=== PATIENT | male | born 1995 | race Caucasian/White ===

== ENCOUNTER 2023-11-26 07:03 | Emergency (ER) | payer MEDICARE, MEDICAID, SELFPAY ==
--- NOTE | ~2023-11-26 | CT_ITS ---
EXAMINATION: CT FACIAL BONES WITH CONTRAST CLINICAL INFORMATION: Left facial infection COMPARISON: None available. TECHNIQUE: Multiple axial images of the facial region were obtained from base of skull to C7 following the administration of 85 mL of Omnipaque 350. Coronal and sagittal images were reconstructed from axial image data. This CT examination was performed using dose optimization techniques as appropriate, variously including the following: *Automated exposure control *Adjustment of mA and/or kV according to patient size (this includes techniques or standardized protocols for targeted exams where dose is matched to indication/reason for exam; i.e. extremities or head) *Use of iterative reconstruction technique DLP: 670 mGy-cm FINDINGS: ORBITS: Bilateral eyeballs are intact. No well defined rim enhancing abscess cavity could be seen. The extraocular muscles, bilateral optic nerve/ophthalmic vein complexes are intact with normal density, enhancement and symmetrical. Bilateral intraorbital fat planes are normal. PARANASAL SINUSES: Moderate mucosal thickening is seen in the lateral wall of left maxillary sinus. Bilateral frontal, ethmoid and sphenoid sinuses are clear. PHARYNX: Bilateral palatine tonsils appear to be diffusely swollen with no well-defined mass lesion or rim-enhancing peritonsillar abscess. The visualized nasopharynx, hypopharynx are normal with no focal mass lesion. PHARYNGEAL STRUCTURES: Bilateral valleculae, epiglottis, piriform sinuses, vocal cords and arytenoids are normal. SALIVARY GLANDS: Bilateral parotid and submandibular salivary glands are symmetrical without focal lesion. LYMPH NODES: Enlarged left level 1B cervical lymph node measures 2.0 cm in AP diameter, 1.1 cm in width, 1.3 cm in vertical height. Right level 1B cervical lymph node measures 1.9 cm in AP length, 0.9 cm in width. Left level 2A cervical lymph node measures 0.9 cm in AP diameter, 1.2 cm in width, 1.7 cm in vertical height. THYROID: No focal thyroid mass lesion is found. BONES: No fracture or dislocation. No focal bone lesion diagnostic of metastatic disease could be seen in the cervical spine and visualized skull base. No focal facial mass lesion or soft tissue abscess could be seen. CT/CT facial bones w IV con IMPRESSION: 1. Bilateral palatine tonsils hypertrophy or tonsillitis. 2. Bilateral level 1B and left level 2A cervical lymphadenopathy. 3. Moderate mucosal thickening in the lateral wall of left maxillary sinus. Electronically signed by: Matheus Bergeron MD 11/26/2023 12:51 PM EDT RP
[2023-11-26 07:08] VITALS: BP 125/69; PULSE 76; RESP 20; TEMP 37; O2SAT 97; BMI 40.7
--- NOTE | 2023-11-26 07:19 | ED.GENADULT ---
HPI - General Adult General Chief complaint: Dental/Oral Stated complaint: facial swelling Time Seen by Provider: 11/26/23 07:19 History of Present Illness ED Provider: Beatriz PRETTY narrative: The patient is a 28-year-old male who says he has not seem doctors in the long time. He does not have any known medical problems. He also says he has not seen a dentist in a long of problems with chronic dental decay. The patient says that yesterday he started to have discomfort in the region of the left cheek associated with swelling of the cheek. No definite fevers, sweats, chills. He thinks he has some swelling in the gums in the region of the left upper molars. He does not really feel he is in a lot of pain. No nausea or vomiting. Related Data Previous Rx's ?Medication ?Instructions ?Recorded amoxicillin 875 mg-potassium 1 tab PO BID #20 tabs 11/26/23 clavulanate 125 mg tablet ibuprofen 600 mg tablet 600 mg PO Q6H PRN pain #14 tabs 11/26/23 Allergies Allergy/AdvReac Type Severity Reaction Status Date / Time shellfish derived Allergy Unknown ANAPHYLAXIS Verified 11/26/23 07:08 [SHELLFISH DERIVED] Review of Systems Review of Systems: Yes all other systems are reviewed and are negative PMFSH Social History Social History Smoked in Last 30 Days: No Use of substances other than those prescribed or required for medical reasons: Yes Substance Use Type: Marijuana Substance Use Frequency: Daily Last Used Substance: Days (ago) Advance Directives: No Advance Directives Information Provided: No Do you have a plan to hurt others: No Plan Physical Exam ED Vital Signs: Vital Signs - 24 hr 11/26/23 07:08 11/26/23 07:21 11/26/23 11:34 Temperature 98.6 F 98.3 F 98.3 F Pulse Rate 76 80 80 Respiratory Rate 20 16 16 Blood Pressure 125/69 145/90 H 145/90 H Pulse Oximetry 97 96 96 Oxygen Delivery Method Room Air Room Air Room Air BMI result Body Mass Index 40.7 Const Other: The patient is a higgins 28-year-old male who was awake and alert. There is some subtle swelling to the left side of the face in the region of the cheek without associated erythema. The patient's mental status is normal in his demeanor is pleasant. He does not seem obviously acutely ill or in distress. HENMT Other: There is some mild sense of swelling to the left side of the face over the left cheek. He has some tenderness over the left cheek. There is no erythema. He is able to open his mouth easily. The patient has significant decay of all of his left upper molars and there is some swelling to the gingiva at the roof of the vestibule of the mouth above these teeth. Eyes Other: Pupils are round equal. Extraocular movements are intact. Neck Other: Moving his neck easily. No apparent cervical adenopathy. Resp Effort & Inspection: normal respiratory effort Auscultation: clear to auscultation bilaterally Cardio Rate: regular rate Rhythm: regular rhythm Heart sounds: S1 normal heart sound present and S2 normal heart sound present GI Other: Abdomen is soft and nontender Skin Other: Skin is dry and unremarkable Neuro Other: The patient is awake and alert with a cheerful and pleasant demeanor. He is nontoxic. Cranial nerves are intact. He moves his extremities normally. Extrem Other: No swelling to the extremities. Medications Administered Discontinued Medications Generic Name Dose Route Start Last Admin Trade Name Freq PRN Reason Stop Dose Admin Amoxicillin/Clavulanate Potassium 875 mg 11/26/23 11:20 11/26/23 11:29 Amoxicillin/Potassium Clav 875 Mg Tablet PO 11/26/23 11:21 875 mg ONCE ONE Administration Ampicillin Sodium/Sulbactam 100 mls @ 200 mls/hr 11/26/23 07:37 11/26/23 09:52 Sodium 3 gm/ Sodium Chloride IV 11/26/23 08:06 Infused ONCE ONE Infusion Sodium Chloride 1,000 mls @ 999 mls/hr 11/26/23 07:45 11/26/23 11:32 Ns IV 11/26/23 08:45 Infused .Q1H1M JOSE JUAN Infusion Iohexol 85 ml 11/26/23 08:55 11/26/23 08:55 Iohexol 350 Mg/Ml 100 Ml Infus..Btl IV 11/26/23 08:56 85 ml ONCE ONE Administration Ketorolac Tromethamine 10 mg 11/26/23 07:38 11/26/23 09:04 Ketorolac Tromethamine 15 Mg/Ml Vial IVPUSH 11/26/23 07:39 10 mg ONCE ONE Administration Lidocaine/Epinephrine 10 ml 10/01/24 09:08 11/26/23 09:20 Lidocaine Hcl 1%/Epi 1:100,000 10 Ml Vial INFILTRATI 11/26/23 09:09 10 ml ONCE ONE Administration Procedures Abscess I/D Site: oral Side (if applicable): left Local Anesthetic: lidocaine 1% and with epi Amount of anesthesia used (mL): 2 Technique: needle aspiration and incised with blade Amount of fluid expressed (mL): 2 Sent for culture/gram staining?: No Irrigation: No Packing used?: none Medical Decision Making Medical Decision Making [facility] Narrative: The patient presents with pain in the region of the left cheek. 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 A CT scan was done that does not show any large abscess or cellulitis. Clinically the patient seemed to have what was possibly an abscess in the region of the gingiva near the roof of the vestibule. After explaining the procedure to the patient I applied topical anesthetic to the area of swelling. I then injected the area with 1% lidocaine with epinephrine. I then used an 18 gauge needle for aspiration of the swelling. I easily obtained 1 mL of pus. I then made an incision with a 11. Blade in the region where I had introduced the needle. This caused some bleeding and a release of some additional pus. The patient had received an initial dose of IV Unasyn, 3 g. The patient tolerated the drainage procedure well. I do not think he requires hospitalization. He was given a dose of oral Augmentin and a prescription for Augmentin. He will be discharged to follow up with a dentist. He should return if worse. Lab Data 11/26/23 07:57 11/26/23 07:57 Labs: Lab Results 11/26/23 Range/Units 07:57 WBC 12.3 H (4.8-10.8) X10*3/uL RBC 5.16 (4.60-5.80) X10*6/uL Hgb 15.2 (14.0-18.0) g/dl Hct 43.9 (42.0-52.0) % MCV 85.1 (80.0-98.0) fL MCH 29.5 (27.0-33.0) pg MCHC 34.6 (31.0-36.0) g/dl RDW 13.2 (11.0-16.0) % Plt Count 256 (160-400) X10*3/uL MPV 10.3 (9.4-12.4) fL Immature Gran % (Auto) 0.4 (0.0-0.4) % Neut % (Auto) 74.7 H (45-73) % Lymph % (Auto) 16.4 L (20-40) % [place] % (Auto) 5.8 (2-11) % Eos % (Auto) 2.3 (0-4) % Baso % (Auto) 0.4 (0-2) % Lymph # (Auto) 2.0 (1.2-4.9) X10*3/uL [place] # (Auto) 0.7 (0.1-1.2) X10*3/uL Eos # (Auto) 0.3 (0.0-0.4) X10*3/uL Baso # (Auto) 0.1 (0.0-0.2) X10*3/uL Abs Immat Gran (auto) 0.05 H (0.00-0.03) X10*3/uL Absolute Neuts (auto) 9.2 H (2.0-8.3) x10*3/uL Absolute Nucleated RBC 0.000 (0.0-0.012) X10*3/uL Nucleated RBC % (auto) 0.0 (0.0-0.2) /100WBC Sodium 140 (135-145) mmol/L Potassium 4.2 (3.3-5.1) mmol/L Chloride 107 (96-108) mmol/L Carbon Dioxide 23 (22-29) mmol/L Anion Gap 14 (12-20) BUN 14 (9-16) mg/dL Creatinine 0.88 (0.5-1.4) mg/dL Estim Creat Clear Calc 153.4 Estimated GFR > 60 Random Glucose 106 (60-115) mg/dL Calcium 9.4 (8.4-10.2) mg/dL Total Bilirubin 0.5 (0.0-1.0) mg/dL Direct Bilirubin 0.2 (0.0-0.5) mg/dL AST 14 (5-37) U/L ALT 22 (0-40) U/L Alkaline Phosphatase 84 (39-117) U/L C-Reactive Protein 1.69 H (< or = 0.50) mg/dL Total Protein 7.7 (6.5-8.0) g/dL Albumin 4.6 (3.5-5.0) g/dL Discharge Plan Discharge Clinical Impression: Dental abscess Patient Disposition: Home, Self-Care Additional Instructions: I think the swelling in the left side of your face is primarily related to a dental infection. We released some pus from a small abscess in your mouth. Please take the antibiotic prescribed 2 times a day. Next dose this evening. The most important thing you can do at this point is make arrangements to see a dentist. Please contact a dental office to see if you can be seen in the next several days. You may use ibuprofen and acetaminophen as needed for discomfort. Return to the emergency room if significantly worse. Prescriptions: New amoxicillin-pot clavulanate 875-125 mg tablet 1 tab PO BID Qty: 20 0RF ibuprofen 600 mg tablet 600 mg PO Q6H PRN (Reason: pain) Qty: 14 0RF Interventions: ED Discharge Assessment Last Done: 11/26/23 11:34 Discharge Date/Time: 11/26/23 11:35 Print Language: Faroese
[2023-11-26 07:21] VITALS: BP 145/90; PULSE 80; RESP 16; TEMP 36.8; O2SAT 96
[2023-11-26 08:03] LABS: MANUAL DIFF FLAG NO
[2023-11-26 08:07] LABS: Basophils Absolute Auto 0.1 X10*3/uL (0.0-0.2); Basophils Percent Auto 0.4 % (0-2); Eosinophils Absolute Auto 0.3 X10*3/uL (0.0-0.4); Eosinophils Percent Auto 2.3 % (0-4); Hematocrit 43.9 % (42.0-52.0); Hemoglobin 15.2 g/dl (14.0-18.0); Imm Gran Abs Auto 0.05 X10*3/uL (0.00-0.03); Imm Gran Pct Auto 0.4 % (0.0-0.4); Lymphocytes Percent Auto 16.4 % (20-40); Mean Corpuscular HGB Conc 34.6 g/dl (31.0-36.0); Mean Corpuscular Hemoglobin 29.5 pg (27.0-33.0); Mean Corpuscular Volume 85.1 fL (80.0-98.0); Mean Platelet Volume 10.3 fL (9.4-12.4); Monocytes Absolute Auto 0.7 X10*3/uL (0.1-1.2); Monocytes Percent Auto 5.8 % (2-11); Neutrophils Absolute Auto 9.2 x10*3/uL (2.0-8.3); Neutrophils Percent Auto 74.7 % (45-73); Platelet Count 256 X10*3/uL (160-400); Red Blood Count 5.16 X10*6/uL (4.60-5.80); Red Cell Distribution Width 13.2 % (11.0-16.0); White Blood Count 12.3 X10*3/uL (4.8-10.8)
[2023-11-26 08:31] LABS: Alanine Aminotransferase 22 U/L (0-40); Albumin Level 4.6 g/dL (3.5-5.0); Alkaline Phosphatase 84 U/L (39-117); Anion Gap 14 (12-20); Aspartate Amino Transferase 14 U/L (5-37); Bilirubin Direct 0.2 mg/dL (0.0-0.5); Bilirubin Total 0.5 mg/dL (0.0-1.0); Blood Urea Nitrogen 14 mg/dL (9-16); C Reactive Protein 1.69 mg/dL (< or = 0.50); Calcium 9.4 mg/dL (8.4-10.2); Carbon Dioxide 23 mmol/L (22-29); Chloride 107 mmol/L (96-108); Creatinine Clr Calc Pharmacy 153.4; Estimated Glomerular Filt Rate > 60; Glucose Random 106 mg/dL (60-115); Potassium 4.2 mmol/L (3.3-5.1); Sodium 140 mmol/L (135-145); Total Protein 7.7 g/dL (6.5-8.0)
[2023-11-26] MEDS: iohexoL 350 MG/ML 100 ML INFUS..BTL 85 ML IV (08:55)
[2023-11-26] MEDS: 0.9 % Sodium Chloride 1,000 ML 999 ML IV (09:04)
[2023-11-26] MEDS: Ketorolac Tromethamine 15 MG/ML VIAL 10 MG IVPUSH (09:04)
[2023-11-26] MEDS: Ampicillin Sodium/Sulbactam Na 3 GM in 0.9 % Sodium Chloride 100 ML IV (09:04)
[2023-11-26] MEDS: Lidocaine HCl 1%/Epi 1:100,000 10 ML VIAL INFILTRATI (09:20)
[2023-11-26] MEDS: Amoxicillin/Potassium Clav 875 MG TABLET PO (11:29)
[2023-11-26 11:34] VITALS: BP 145/90; PULSE 80; RESP 16; TEMP 36.8; O2SAT 96
== END 2023-11-26 11:35 | disposition home or self-care (01) ==
PROVIDERS: Emergency Provider Emergency Medicine
DX: K04.7 Periapical abscess without sinus (principal); K02.9 Dental caries, unspecified
CPT/HCPCS: 36415; 70487; 80048; 80076; 85025; 86140; 96361; 96374; 96375; 99284; J0295; J1885; Q9967

== ENCOUNTER 2024-10-13 13:36 | Emergency (ER) | payer MEDICARE, MEDICAID, SELFPAY ==
[2024-10-13 13:55] VITALS: BP 150/77; PULSE 66; RESP 18; TEMP 36.1; O2SAT 98; BMI 42.0
--- NOTE | 2024-10-13 13:58 | ED_ITS ---
HPI - Dental/Oral General Chief complaint: Dental/Oral Stated complaint: Tooth ache Time Seen by Provider: 10/13/24 13:56 Source: patient Mode of arrival: ambulatory Limitations: no limitations History of Present Illness ED Provider: RICHARDSON BEYER PA-C HPI Narrative: 28-year-old male presents to the ED today for evaluation of dental pain x1 week. Reports pain to right lower molar. Reports broken tooth in this area. He has an appointment with a dentist next week however feels he may require antibiotics in the meantime. He has been applying ice packs and taking Tylenol with temporary improvement in pain. Denies any drainage from the area. Denies fever/chills. Related Data Previous Rx's ?Medication ?Instructions ?Recorded amoxicillin 875 mg-potassium 1 tab PO BID #20 tabs 03/20 clavulanate 125 mg tablet ibuprofen 600 mg tablet 600 mg PO Q6H PRN pain #14 t abs 11/26/23 amoxicillin 875 mg-potassium 1 tab PO Q12H 7 days #14 tabs 10/13/24 clavulanate 125 mg tablet Allergies Allergy/AdvReac Type Severity Reaction Status Date / Time shellfish derived (SHELLFISH Allergy Unknown ANAPHYLAXIS Verified 10/13/24 13:55 DERIVED) Review of Systems Review of Systems: Constitutional: No fever, chills, fatigue, night sweats, weight changes ENT/Mouth: No ear pain, hearing loss, nasal congestion, sinus pain, rhinorrhea, sore throat, +dental pain Eyes: No eye pain, swelling, redness, vision changes, discharge Cardio: No chest pain, palpitations, MEDRANO, orthopnea, peripheral edema Pulm: No SOB, cough, sputum, wheezing, dyspnea, hemoptysis GI: No nausea, vomiting, hematemesis, abdominal pain, diarrhea, constipation, hematochezia, melena : No irregular bleeding, dysuria, frequency, urgency, hesitancy, hematuria, flank pain, urinary flow changes, urinary incontinence or retention MSK: No back pain, neck pain, joint pain, myalgias Skin: No lesions, rashes Neuro: No weakness, numbness, paresthesias, LOC, dizziness, headache Psych: No anxiety/panic, depression, SI/HI, AH/VH All other systems reviewed and are negative. [facility] Past Medical History Attestation statement: The following information was validated with the patient. Source: old records reviewed and nursing notes reviewed Social History Social History Substance Use Type: Marijuana Advance Directives: No Advance Directives Information Provided: Yes Do you have a plan to hurt others: No Plan Physical Exam Vital Signs: Vital Signs: Last Vital Signs Temp 97 F 10/13/24 14:03 Pulse 66 10/13/24 14:03 Resp 18 10/13/24 14:03 BP 150/77 H 10/13/24 14:03 Pulse Ox 98 10/13/24 14:03 O2 Del Method Room Air 10/13/24 14:03 BMI result Body Mass Index 42.0 Vital signs stable, afebrile. Const: General: cooperative, comfortable and no acute distress Orientation/consciousness: patient oriented x3 Limitations: no limitations HEENT: Other: + No facial edema. Tongue and lips wnl + multiple dental caries and poor dentit ion. Right lower molar #30 broken/ missing with localized periapical swelling to the lingual ginginva. No pointing. No active bleeding/ discharge. TTP. No palpable fluctuance. + No edema to buccal mucosa + Posterior oropharynx without erythema/ edema. Uvula midline. Controlling secretions and speaking in complete sentences + No submandublar or submental LAD + No cervical LAD + no anterior neck swelling Head: Yes normal to inspection, Yes No palpable skull fracture present, Yes normocephalic and Yes atraumatic Ears: hearing grossly normal bilaterally, external ears normal, TM's normal bilaterally, EAC's normal, mastoids normal and no periauricular adenopathy Eyes: General: appearance normal, both eyes and all related structures Conjunctivae: conjunctivae normal Sclerae: sclerae normal Pupils: Equal, round and reactive pupils present Neck: Neck: Yes normal visual inspection and Yes no lymphadenopathy Resp: Effort & Inspection: normal respiratory effort and no stridor Auscultation: clear to auscultation bilaterally Cardio: Rate: regular rate Rhythm: regular rhythm Skin: General skin exam: no rashes or lesions noted Neuro: General: patient oriented x3 and gait normal Cranial nerves: Yes Equal, round and reactive pupils present Course Course Course Narrative: Patient noted to have dental infection. There is no evidence of abscess that warrants drainage at this time. Will treat patient's pain and patient will be discharged home on Augmentin to ensure there is no worsening infection for follow-up with dentist. Patient advised to follow up with dentist this week. A referral has been provided. Patient has remained stable throughout ED visit today. I discussed worrisome signs and symptoms and when to return to the ED. All questions answered at this time. Patient is agreeable with disposition and stable for discharge. Medical Decision Making Medical Decision Making MDM Narrative: 28-year-old male presents to the ED today for evaluation of dental pain x1 week. Hypertensive, vitals otherwise WNL. Afebrile. Refer to physical exam portion for findings. Differential includes dental/ periapical abscess/infection. Unlikely mono, herpes, sialadenitis, sialolithiasis, [employer], retropharyngeal abscess, deep neck infection, osteomyelitis, facial cellulitis/ abscess, lymphoma. Plan for discharge home with antibiotics and dentist follow up. Differential Diagnosis Differential Diagnoses: The differential diagnosis associated with the presentation includes as above. Admission/Observation Not indicated. Tests considered The following testing was considered but not selected: I considered obtaining a CT of the soft tissues neck however these is no ev idence of ludwigs angina or concern for deep tissue infection. Not warranted at this time. Prescription Management I considered prescription management with: Antibiotic (Augmentin) Social Determinants Patient?s care significantly limited by Social Determinants of Health including: Other Social Determinant of Health Critical Care Time Critical Care Time Critical Care Time: No Discharge Plan Discharge Clinical Impression: Toothache Patient Disposition: Home, Self-Care Instructions: Toothache (ED) Additional Instructions: You were evaluated in ED today for dental pain. You have a dental infection. Augmentin is an antibiotic that has been sent to your pharmacy for treatment. Take this as prescribed and do not skip any doses. Take this to completion or the infection may persist or worsen. On Augmentin, softer bowel movements are to be expected. Call your provider if you move your bowels more than 4 times a day, your bowel movements are almost all liquid, or you get a rash.? Take tylenol/ motrin at home as needed for pain. YOU NEED TO FOLLOW UP WITH A DENTIST. You have been provided with a referral to [facility]. They are currently taking new clients. Call them to make an appointment. They will not call you. Return with new or worsening symptoms. In the case of an emergency call 911. [facility]: [phone] [address] [id number] Prescriptions: New amoxicillin-pot clavulanate 875-125 mg tablet 1 tab PO Q12H 7 Days Qty: 14 0RF No Action amoxicillin-pot clavulanate 875-125 mg tablet 1 tab PO BID Qty: 20 0RF ibuprofen 600 mg tablet 600 mg PO Q6H PRN (Reason: pain) Qty: 14 0RF Referrals: Physician,Unknown J [Primary Care Provider, Medical] Interventions: ED Discharge Assessment Last Done: 10/13/24 14:03 Discharge Date/Time: 10/13/24 14:11 Print Language: Macedonian
[2024-10-13 14:03] VITALS: BP 150/77; PULSE 66; RESP 18; TEMP 36.1; O2SAT 98
== END 2024-10-13 14:11 | disposition home or self-care (01) ==
PROVIDERS: Emergency Provider Emergency Medicine
DX: K08.89 Other specified disorders of teeth and supporting structures (principal)
CPT/HCPCS: 99282; 99283